=== PATIENT | female | born 1955 | race Caucasian/White ===

== ENCOUNTER 2023-01-21 12:34 | Outpatient (CLI) | payer MEDICARE | END 2023-01-21 12:35 | disposition home or self-care (01) | LOC: CSHMAMMO 12:34 | PROVIDERS: ATTEND Nurse Practitioner Family | DX: Z13.820 Encounter for screening for osteoporosis (principal); M85.851 Other specified disorders of bone density and structure, right thigh; M85.852 Other specified disorders of bone density and structure, left thigh; Z78.0 Asymptomatic menopausal state | CPT/HCPCS: 77080 ==

== ENCOUNTER 2024-06-14 09:17 | Day surgery (SDC) | payer MEDICARE ==
[2024-06-13 12:49] VITALS: BMI 21.7
[2024-06-14] MEDS ORDERED: Ropivacaine 0.2% 550 ML 550 ML NERVE BLCK SCH (10:30)
[2024-06-14] MEDS ORDERED: Ondansetron PF 4 MG/2 ML Vial IVP PRN (10:30)
[2024-06-14] MEDS ORDERED: Zolpidem Tartrate 5 MG TAB PO PRN (10:30)
[2024-06-14] MEDS ORDERED: Promethazine HCl 25 MG/ML VIAL IM PRN (10:30)
[2024-06-14] MEDS ORDERED: PROPOFOL 20 ML ONE (11:00)
[2024-06-14] MEDS ORDERED: Lidocaine 1% PF 5 ML VIAL ONE (11:01)
[2024-06-14] MEDS ORDERED: CEFAZOLIN 2 GM VIAL ONE (11:23)
[2024-06-14] MEDS ORDERED: Bupivacaine PF 0.5% 30 ML VIAL ONE (11:24)
[2024-06-14] MEDS ORDERED: fentaNYL 50 mcg/mL 1 mL Vial ONE ×2 (11:26→14:01)
[2024-06-14] MEDS ORDERED: Ondansetron PF 4 MG/2 ML Vial ONE (12:03)
[2024-06-14] MEDS ORDERED: Dexamethasone 4 mg/ml Vial ONE (12:03)
[2024-06-14] MEDS ORDERED: ePHEDrine Sulfate 50 MG/10 ML VIAL ONE (12:11)
[2024-06-14] MEDS ORDERED: oxyCODONE 5 MG TAB ONE (14:32)
== END 2024-06-14 15:20 | disposition home or self-care (01) ==
LOC: CSHSDC 09:17
PROVIDERS: ATTEND Podiatrist Foot & Ankle Surgery
PROC: 0SGN04Z Fusion of Left Metatarsal-Phalangeal Joint with Internal Fixation Device, Open Approach (ICD-10-PCS; principal; 2024-06-14)
DX: T84.84XD Pain due to internal orthopedic prosthetic devices, implants and grafts, subsequent encounter (principal); M20.12 Hallux valgus (acquired), left foot; E11.9 Type 2 diabetes mellitus without complications; Z88.5 Allergy status to narcotic agent; Z88.6 Allergy status to analgesic agent; Z88.2 Allergy status to sulfonamides; Z88.8 Allergy status to other drugs, medicaments and biological substances; M19.90 Unspecified osteoarthritis, unspecified site; I10 Essential (primary) hypertension; E78.00 Pure hypercholesterolemia, unspecified; Z98.890 Other specified postprocedural states; E03.9 Hypothyroidism, unspecified; Z79.82 Long term (current) use of aspirin; Z79.899 Other long term (current) drug therapy; Z91.041 Radiographic dye allergy status; Y83.1 Surgical operation with implant of artificial internal device as the cause of abnormal reaction of the patient, or of later complication, without mention of misadventure at the time of the procedure
CPT/HCPCS: 28750; A4306; C1713 ×2; C1769 ×2; C1776; J0665; J1100; J2405; J2704; J2795; J3010; 88305; 88313